=== PATIENT | female | born 1985 | race Caucasian/White ===

== ENCOUNTER 2018-07-10 21:20 | Emergency (ER) | payer SELFPAY ==
[~2018-07-10] VITALS: Ht 167.6 cm; Wt 63.6 kg
[2018-07-10 21:25] VITALS: Ht 167.6 cm; Wt 63.6 kg
[2018-07-10 21:39] LABS: BASOPHILS 0.6 % (0-2); EOSINOPHILS 2.7 % (0-7); HEMATOCRIT 40.2 % (36.0-48.0); HEMOGLOBIN 13.3 g/dL (12-16); IMMATURE GRANULOCYTES 0.2 % (0-5); LYMPHOCYTES 44.4 % (15-50); MCH 30.1 pg (26.0-34.0); MCHC 33.1 g/dL (31.0-37.0); MEAN PLATELET VOLUME 9.8 fL (7.4-10.4); MONOCYTES 5.8 % (2-11); NEUTROPHILS 46.3 % (40-80); PLATELET COUNT 461 10x3/uL (130-400); RBC 4.42 10x6/uL (4.00-5.40); WBC 13.7 10x3/uL (4.8-10.8)
[2018-07-10 21:54] LABS: ALBUMIN 3.9 g/dL (3.4-5.0); ANION GAP 22.9 mmol/L (8-16); BILIRUBIN - TOTAL 0.15 mg/dL (0.2-1.3); CALCIUM 9.1 mg/dL (8.5-10.1); CARBON DIOXIDE 18.8 mmol/L (21.0-32.0); POTASSIUM - SERUM 3.7 mmol/L (3.5-5.1)
[2018-07-10] MEDS ORDERED: KEFLEX500 MG PO (22:28)
[2018-07-10] MEDS ORDERED: NORCO 7.5/325 T1 TA1 PO (22:28)
[2018-07-10 23:28] VITALS: BP 132/83
== END 2018-07-10 23:29 | disposition home or self-care (01) ==
LOC: D.ER 21:20
PROVIDERS: Emergency Medicine
DX: S21.212A Laceration without foreign body of left back wall of thorax without penetration into thoracic cavity, initial encounter (principal); Y04.2XXA Assault by strike against or bumped into by another person, initial encounter; Y93.89 Activity, other specified; Y92.89 Other specified places as the place of occurrence of the external cause; F17.200 Nicotine dependence, unspecified, uncomplicated